=== PATIENT | male | born 1940 ===

== ENCOUNTER 2018-05-17 05:17 | Emergency (ER) | payer MEDICARE ==
[2018-05-17] MEDS ORDERED: TOPICAL SKIN ADHESIVE 1 EACH AMP TOPICAL ONE (05:39)
--- NOTE | 2018-05-17 05:50 | ED ---
Wound/Laceration HPI - General Chief Complaint: Wound/Laceration Stated Complaint: Syncope Time Seen by Provider: 05/17/18 05:19 Source: patient, EMS Mode of arrival: EMS Limitations: no limitations - History of Present Illness Initial Comments: This patient is 77-year-old man who presents to be evaluated for bleeding from the right lower extremity. The patient states that he believes he had a small scab on his leg and that he knocked it off this morning while trying to get his shoe on. He then noted that there was bleeding that was not stopping so they called EMS and brought here. The patient also may have had a syncopal episode. He states that he had been using the commode and then found himself on the floor and was uncertain if he had passed out. EMS says applied a bandage that does appear to have stop things. Pt denies history of bleeding disorder or medication. -: minutes(s) Extremity Location: Right: Lower Leg Place: home Patient Tetanus UTD: Yes Context: accidental Associated Symptoms: none - Related Data Allergies Allergy/AdvReac Type Severity Reaction Status Date / Time Penicillins Allergy Rash/Hives Verified 05/17/18 05:28 Review of Systems ROS Statement: Those systems with pertinent positive or pertinent negative responses have been documented in the HPI. ROS Other: All systems not noted in ROS Statement are negative. Constitutional: Denies: fever, chills, weakness Respiratory: Denies: cough, dyspnea Cardiovascular: Denies: chest pain, palpitations Skin: Reports: as per HPI, lesions Hematological/Lymphatic: Denies: easy bleeding, easy bruising Past Medical History Past Medical History: Hypertension, Sleep Apnea/CPAP/BIPAP History of Any Multi-Drug Resistant Organisms: None Reported Past Surgical History: Adenoidectomy, Tonsillectomy Additional Past Surgical History / Comment(s): rifght inguinal hernia 2000, 2016 femur RX repair, skin cancer removed, Past Psychological History: No Psychological Hx Reported Smoking Status: Former smoker Past Alcohol Use History: None Reported Past Drug Use History: None Reported General Exam Limitations: no limitations General appearance: alert, in no apparent distress Head exam: Present: atraumatic, normocephalic Eye exam: Present: normal appearance, PERRL, EOMI. Absent: scleral icterus, conjunctival injection, nystagmus ENT exam: Present: normal oropharynx Respiratory exam: Present: normal lung sounds bilaterally. Absent: respiratory distress, wheezes, rales, rhonchi, stridor Cardiovascular Exam: Present: regular rate, normal rhythm, normal heart sounds. Absent: systolic murmur, diastolic murmur, rubs, gallop GI/Abdominal exam: Present: soft. Absent: distended, tenderness, guarding, rebound, mass Extremities exam: Present: normal inspection, normal capillary refill, other ( The patient has an approximately 4 mm diameter ulceration overlying a varicosity on the medial aspect of the right ankle.). Absent: pedal edema Back exam: Present: normal inspection. Absent: CVA tenderness (R), CVA tenderness (L) Neurological exam: Present: alert, oriented X3. Absent: motor sensory deficit Skin exam: Present: warm, dry, normal color, other (Near the medial aspect of the right ankle, the patient has an excoriation over a varicosity which appears to been the source of the bleeding. There is currently good hemostasis.) Course Vital Signs 05/17/18 05/17/18 05/17/18 05:21 06:07 06:19 Temperature 97.6 F Pulse Rate 50 L 42 L 44 L Respiratory 18 18 18 Rate Blood Pressure 155/68 127/82 O2 Sat by Pulse 95 98 100 Oximetry 05/17/18 07:30 Temperature Pulse Rate 52 L Respiratory 20 Rate Blood Pressure 114/70 O2 Sat by Pulse 96 Oximetry Medical Decision Making - Medical Decision Making Patient is 77-year-old man with a bleeding varicosity and a possible syncopal episode. Have repaired the small ulceration to the varicosity with skin glue. I discussed admitting the patient's for telemetry monitoring and serial cardiac enzymes and recommended this to him. I discussed the case with Dr. Carl Alejo who is covering for his primary physician. The patient did subsequently decided that he wanted to go home and wanted sign out AMA, I discussed the possibility of missing an underlying cardiac etiology and risk of sudden . Patient understands that there is a risk and wanted sign out AMA. - Lab Data Result diagrams: 05/17/18 06:03 05/17/18 06:03 Lab Results 05/17/18 05/17/18 05/17/18 Range/Units 06:03 06:03 06:03 WBC 6.3 (3.8-10.6) k/uL RBC 3.65 L (4.30-5.90) m/uL Hgb 10.9 L (13.0-17.5) gm/dL Hct 33.5 L (39.0-53.0) % MCV 91.8 (80.0-100.0) fL MCH 30.0 (25.0-35.0) pg MCHC 32.6 (31.0-37.0) g/dL RDW 13.8 (11.5-15.5) % Plt Count 139 L (150-450) k/uL Sodium 141 (137-145) mmol/L Potassium 3.6 (3.5-5.1) mmol/L Chloride 109 H (98-107) mmol/L Carbon Dioxide 26 (22-30) mmol/L Anion Gap 6 mmol/L BUN 18 (9-20) mg/dL Creatinine 0.85 (0.66-1.25) mg/dL Est GFR (CKD-EPI)AfAm >90 (>60 ml/min/1.73 sqM) Est GFR (CKD-EPI)NonAf 83 (>60 ml/min/1.73 sqM) Glucose 111 H (74-99) mg/dL Calcium 7.8 L (8.4-10.2) mg/dL Total Bilirubin 0.3 (0.2-1.3) mg/dL AST 24 (17-59) U/L ALT 29 (21-72) U/L Alkaline Phosphatase 54 (38-126) U/L Troponin I 0.035 H* (0.000-0.034) ng/mL Total Protein 5.2 L (6.3-8.2) g/dL Albumin 3.2 L (3.5-5.0) g/dL - EKG Data -: EKG Interpreted by Ma EKG shows normal: sinus rhythm (Sinus bradycardia with occasional PVC.), axis ( Normal), intervals (MS interval is 252 ms, consistent with first-degree AV block.), QRS complexes (Normal) Rate: bradycardia (Rate approximate 43 bpm) Interpretation: nonspecific ST-T wave changes Disposition Clinical Impression: Leg varicosity w ulcer, Symptomatic bradycardia Disposition: Left Against Medical Advice Condition: Good Instructions: Varicose Veins (ED) Is patient prescribed a controlled substance at d/c from ED?: No Referrals: Gerald Valerio MD [Primary Care Provider] - 1-2 days
[2018-05-17] MEDS ORDERED: ONDANSETRON 4 MG/2 ML VIAL IVP STA (06:10)
[2018-05-17 06:14] LABS: HCT 33.5 % (39.0-53.0); HGB 10.9 gm/dL (13.0-17.5); MCHC 32.6 g/dL (31.0-37.0); MCV 91.8 fL (80.0-100.0); Mean Platelet Volume 8.7; Platelet Count 139 k/uL (150-450); RBC 3.65 m/uL (4.30-5.90); RDW 13.8 % (11.5-15.5); WBC 6.3 k/uL (3.8-10.6)
[2018-05-17 06:46] LABS: ALT 29 U/L (21-72); AST 24 U/L (17-59); Albumin 3.2 g/dL (3.5-5.0); Alkaline Phosphatase 54 U/L (38-126); Anion Gap 6 mmol/L; Blood Urea Nitrogen 18 mg/dL (9-20); Calcium 7.8 mg/dL (8.4-10.2); Carbon Dioxide 26 mmol/L (22-30); Chloride 109 mmol/L (98-107); Glucose 111 mg/dL (74-99); Potassium 3.6 mmol/L (3.5-5.1); Sodium 141 mmol/L (137-145); Total Bilirubin 0.3 mg/dL (0.2-1.3); Total Protein 5.2 g/dL (6.3-8.2)
[2018-05-17] MEDS ORDERED: SODIUM CHLORIDE 0.9% 500 ML IV STA (07:03)
[2018-05-17 08:49] VITALS: BP 128/66; PULSE 54; RESP 18; TEMP 98
== END 2018-05-17 09:15 | disposition left against medical advice (07) ==
LOC: EC 05:17
DX: I83.013 Varicose veins of right lower extremity with ulcer of ankle (principal); R00.1 Bradycardia, unspecified; G47.30 Sleep apnea, unspecified; Z99.89 Dependence on other enabling machines and devices; Z87.891 Personal history of nicotine dependence; Z85.828 Personal history of other malignant neoplasm of skin; Z88.0 Allergy status to penicillin
CPT/HCPCS: 36415; 80053; 84484; 85027; 93005; 96374; 99284

== ENCOUNTER → 2018-11-08 | Outpatient (CLI) | payer MEDICARE ==
--- NOTE | 2018-11-08 10:33 | XR ---
EXAMINATION TYPE: XR chest 2V DATE OF EXAM: 11/08/2018 COMPARISON: NONE HISTORY: Cough per order. Follow-up pleural effusion per technologist. TECHNIQUE: Frontal and lateral views of the chest are obtained. FINDINGS: There is no significant pleural effusion or pneumothorax seen bilaterally. There is limit ed left basilar atelectasis and/or infiltrate. Right lung is clear. The cardiac silhouette size is u pper limits of normal without sclerotic aorta. The osseous structures are intact. IMPRESSION: Patchy left basilar acute atelectasis and/or infiltrate. No significant pleural effusion bilaterally.
== END | disposition home or self-care (01) ==
LOC: RADXRMAIN 10:07
PROVIDERS: ATTEND Internal Medicine
DX: R05 Cough (principal)
CPT/HCPCS: 71046